=== PATIENT | female | born 1975 | race American Indian/Alaskan Native ===

== ENCOUNTER 2019-03-24 12:40 | Emergency (ER) | payer MEDICARE, OTHER ==
[2019-03-24] MEDS ORDERED: METOCLOPRAMIDE 10 MG/2 ML INJ IV PRN (13:30)
[2019-03-24] MEDS ORDERED: diphenhydrAMINE 50 MG/ML VIAL IV ONE (13:30)
[2019-03-24] MEDS ORDERED: FAMOTIDINE 20 MG/2 ML INJ IV ONE (14:14)
[2019-03-24] MEDS ORDERED: SODIUM CHLORIDE 0.9% 1000 ML 1,000 ML IV ONE ×2 (14:15→17:40)
[2019-03-24] MEDS ORDERED: ONDANSETRON 4 MG/2 ML INJ IV ONE ×2 (14:19→16:05)
--- NOTE | 2019-03-24 14:31 | Emergency Department Report ---
<SHILPA LEON - Last Filed: 03/24/19 17:39> ED N/V/D HPI - General Chief complaint: Nausea/Vomiting/Diarrhea Stated complaint: NAUSEA/VOMITING Time Seen by Provider: 03/24/19 13:23 Source: patient, EMS Mode of arrival: Stretcher Limitations: Physical Limitation - History of Present Illness Initial comments: 43-year-old -[place] female with a significant recent past medical history of toxic shock syndrome, SC, MARLYN, bilateral lower leg amputation, and finger necrosis laterally presents with complaints of nausea and vomiting with chills and sweats for the past 4 days and worsening pain in the right leg wound for the past 2 weeks. He is following with Dr. Jonas, wound clinic. Patient states that she is seen every Sunday and has a wound care nurse come to her house twice a weeklast seen on Sunday. Patient states her wound is worsening in pain and has a strong odor to itwith increased drainage. She states she is unable to keep any food down and vomits with or without eating. She denies any hematemesis, coffee-ground emesis, hematochezia/melena. She admits to epigastric pain that she rates as a 10/10 in severity. - Related Data Previous Rx's Medication Instructions Recorded Last Taken Type Ondansetron [Zofran Odt] 4 mg PO Q8HR PRN #10 tab.rapdis 03/24/19 Unknown Rx Allergies Allergy/AdvReac Type Severity Reaction Status Date / Time No Known Allergies Allergy Unverified 03/24/19 13:19 ED Review of Systems Constitutional: chills, fever, malaise Eyes: denies: vision change ENT: denies: throat pain Respiratory: denies: cough, shortness of breath Cardiovascular: denies: chest pain Gastrointestinal: abdominal pain, nausea, vomiting. denies: diarrhea, constipation, hematemesis, melena, hematochezia Genitourinary: denies: urgency, frequency Musculoskeletal: denies: back pain Skin: other (chronic wounds). denies: rash, change in color Neurological: denies: headache, paresthesias, confusion Psychiatric: denies: auditory hallucinations, visual hallucinations ED Past Medical Hx - Past Medical History Previous Medical History?: Yes Hx Hypertension: Yes Hx Heart Attack/AMI: Yes Additional medical history: sepsis - Surgical History Past Surgical History?: Yes Additional Surgical History: BLE amputation - Social History Smoking Status: Current Every Day Smoker Substance Use Type: None - Medications Home Medications: Home Medications Medication Instructions Recorded Confirmed Last Taken Type Ondansetron [Zofran Odt] 4 mg PO Q8HR PRN #10 tab.kentrelldis 03/24/19 Unknown Rx ED Physical Exam - General Limitations: Physical Limitation General appearance: alert, other (actively vomiting ) - Head Head exam: Present: atraumatic, normocephalic - Eye Eye exam: Present: normal appearance. Absent: scleral icterus - ENT ENT exam: Present: normal orophraynx - Neck Neck exam: Present: normal inspection. Absent: lymphadenopathy - Respiratory Respiratory exam: Present: normal lung sounds bilaterally. Absent: respiratory distress - Cardiovascular Cardiovascular Exam: Present: regular rate, normal rhythm - GI/Abdominal GI/Abdominal exam: Present: soft, tenderness (epigastric ). Absent: distended, guarding, rebound, rigid - Back Exam Back exam: Absent: CVA tenderness (L) - Neurological Exam Neurological exam: Present: alert, oriented X3 - Psychiatric Psychiatric exam: Present: normal affect, normal mood - Skin Skin exam: Present: warm, dry, normal color, other (chronic wound noted to the right lateral thigh with strong odor and significant tenderness to touch. No significant surrounding erythema or active drainage noted). Absent: rash ED Medical Decision Making - Lab Data Result diagrams: 03/24/19 16:34 03/24/19 14:01 Lab Results 03/24/19 03/24/19 03/24/19 Range/Units 14:01 14:01 14:37 WBC (4.5-11.0) K/mm3 RBC (3.65-5.03) M/mm3 Hgb (10.1-14.3) gm/dl Hct (30.3-42.9) % MCV (79-97) fl MCH (28-32) pg MCHC (30-34) % RDW (13.2-15.2) % Plt Count (140-440) K/mm3 Sodium 136 L (137-145) mmol/L Potassium 3.7 (3.6-5.0) mmol/L Chloride 96.9 L (98-107) mmol/L Carbon Dioxide 23 (22-30) mmol/L Anion Gap 20 mmol/L BUN 13 (7-17) mg/dL Creatinine 0.9 (0.7-1.2) mg/dL Estimated GFR > 60 ml/min BUN/Creatinine Ratio 14 % Glucose 106 H (65-100) mg/dL Lactic Acid 1.20 (0.7-2.0) mmol/L Calcium 9.8 (8.4-10.2) mg/dL Total Bilirubin 0.20 (0.1-1.2) mg/dL AST 10 (5-40) units/L ALT 5 L (7-56) units/L Alkaline Phosphatase 114 (35-129) units/L Troponin T < 0.010 (0.00-0.029) ng/mL Total Protein 8.3 H (6.3-8.2) g/dL Albumin 3.2 L (3.9-5) g/dL Albumin/Globulin Ratio 0.6 % Lipase (13-60) units/L 03/24/19 03/24/19 Range/Units 14:37 16:34 WBC 10.4 (4.5-11.0) K/mm3 RBC 3.24 L (3.65-5.03) M/mm3 Hgb 9.0 L (10.1-14.3) gm/dl Hct 27.4 L (30.3-42.9) % MCV 85 (79-97) fl MCH 28 (28-32) pg MCHC 33 (30-34) % RDW 16.4 H (13.2-15.2) % Plt Count 399 (140-440) K/mm3 Sodium (137-145) mmol/L Potassium (3.6-5.0) mmol/L Chloride (98-107) mmol/L Carbon Dioxide (22-30) mmol/L Anion Gap mmol/L BUN (7-17) mg/dL Creatinine (0.7-1.2) mg/dL Estimated GFR ml/min BUN/Creatinine Ratio % Glucose (65-100) mg/dL Lactic Acid (0.7-2.0) mmol/L Calcium (8.4-10.2) mg/dL Total Bilirubin (0.1-1.2) mg/dL AST (5-40) units/L ALT (7-56) units/L Alkaline Phosphatase (35-129) units/L Troponin T (0.00-0.029) ng/mL Total Protein (6.3-8.2) g/dL Albumin (3.9-5) g/dL Albumin/Globulin Ratio % Lipase 5 L (13-60) units/L - Medical Decision Making 43-year-old -[place] female with a significant recent past medical history of toxic shock syndrome, SC, MARLYN, bilateral lower leg amputation, and finger necrosis laterally presents with complaints of nausea and vomiting with chills and sweats for the past 4 days and worsening pain in the right leg wound for the past 2 weeks. He is following with Dr. Jonas, wound clinic. Patient states that she is seen every Sunday and has a wound care nurse come to her house twice a weeklast seen on Sunday. Wbc's are normal. Lactic acid is negative. Patient afebrile. No erythema or drainage noted of the wound. Patient seen here 03/09/2019 for similar symptoms. Patient's father states he believes patient has smoked marijuana recently although patient denies this. Urine drug screen pending. Pain and vomiting currently controlled after morphine and second dose of Zofran. Suspect possible cannabinoid hyperemesis and dry given all labs are WNL. Patient remains mildly tachycardic after 1 L bolus-most recent heart rate measured at 118. Second liter bolus ordered. Patient to DC home is heart rate normalizes with follow-up with gastroenterology. Patient handed off to Isaiah Metcalf PA-C pending HR recheck and PO challenge. ED Disposition Clinical Impression: Cannabinoid hyperemesis syndrome Nausea & vomiting Qualifiers: Vomiting type: unspecified Vomiting Intractability: non-intractable Qualified Code(s): R11.2 - Nausea with vomiting, unspecified Disposition: DC- TO HOME OR SELFCARE Is pt being admited?: No Condition: Stable Instructions: Acute Nausea and Vomiting (ED) Additional Instructions: Follow-up with a primary care and quality control operator doctor in 3-5 days or if symptoms worsen and continue return to emergency room as soon as possible. Prescriptions: Ondansetron [Zofran Odt] 4 mg PO Q8HR PRN #10 tab.rapdis PRN Reason: Nausea Referrals: [facility] [Provider Group] - 2-3 Days PRIMARY CARE, [Primary Care Provider] - 3-5 Days NICOLA RODRIGUEZ MD [Staff Physician] - 3-5 Days [facility] [Outside] - 3-5 Days [facility] [Outside] - 3-5 Days <ISAIAH METCALF - Last Filed: 03/24/19 22:21> ED Review of Systems ROS: Stated complaint: NAUSEA/VOMITING Other details as noted in HPI ED Course Vital Signs 03/24/19 03/24/19 03/24/19 13:08 13:15 13:16 Temperature 98.2 F Pulse Rate 66 67 Respiratory 22 24 13 Rate Blood Pressure 190/96 190/96 O2 Sat by Pulse 100 100 Oximetry 03/24/19 03/24/19 03/24/19 13:30 13:46 14:00 Temperature Pulse Rate 72 66 71 Respiratory 12 23 22 Rate Blood Pressure 190/96 132/111 194/102 O2 Sat by Pulse 100 100 100 Oximetry 03/24/19 03/24/19 03/24/19 14:16 14:30 14:46 Temperature Pulse Rate 69 73 75 Respiratory 28 H 24 30 H Rate Blood Pressure 132/111 193/99 193/99 O2 Sat by Pulse 100 100 99 Oximetry 03/24/19 03/24/19 03/24/19 14:59 15:00 15:30 Temperature Pulse Rate 74 88 93 H Respiratory 23 27 H Rate Blood Pressure 193/99 193/104 193/104 O2 Sat by Pulse 99 100 Oximetry 03/24/19 03/24/19 03/24/19 16:00 16:30 16:55 Temperature Pulse Rate 80 87 Respiratory 10 L 12 18 Rate Blood Pressure 176/91 147/96 O2 Sat by Pulse 100 100 Oximetry 03/24/19 03/24/19 03/24/19 17:00 17:30 18:00 Temperature Pulse Rate 108 H 106 H Respiratory 14 17 13 Rate Blood Pressure 170/87 168/94 173/97 O2 Sat by Pulse 100 99 99 Oximetry 03/24/19 03/24/19 03/24/19 18:30 18:46 19:00 Temperature Pulse Rate 115 H 136 H 123 H Respiratory 17 19 20 Rate Blood Pressure 133/82 119/89 119/89 O2 Sat by Pulse 98 98 90 Oximetry 03/24/19 03/24/19 03/24/19 19:16 19:30 20:18 Temperature Pulse Rate 100 H 116 H 111 H Respiratory 15 29 H 10 L Rate Blood Pressure 133/87 133/87 130/76 O2 Sat by Pulse 100 98 100 Oximetry 03/24/19 03/24/19 20:30 20:49 Temperature 98.7 F Pulse Rate 108 H Respiratory 16 Rate Blood Pressure 130/76 O2 Sat by Pulse 100 Oximetry - Reevaluation(s) Reevaluation #1: 03/24/19 20:46 Patient is resting comfortably with no signs of distress. Patient tolerated by mouth with no nausea vomiting. Patient is currently stable. ED Medical Decision Making - Lab Data Result diagrams: 03/24/19 16:34 03/24/19 14:01 - Medical Decision Making Patient was originally seen by claribel Stokes and was signed out to me for a by mouth challenge and repeat heart rate. Patient does and has been doing marijuana daily. Heart rate has safely decreased prior to discharge. Patient has tolerated by mouth. X-ray obtained and dictated by radiologist of the abdomen/chest within normal limits. Labs are unremarkable. Vitals signs stable. Patient will be discharged with [facility] and patient was instructed to Follow-up with a primary care and quality control operator doctor in 3-5 days or if symptoms worsen and continue return to emergency room as soon as possible. At time of discharge, the patient does not seem toxic or ill in appearance. No acute signs of distress noted. Patient agrees to discharge treatment plan of care. No further questions noted by the patient. Critical care attestation.: If time is entered above; I have spent that time in minutes in the direct care of this critically ill patient, excluding procedure time. ED Disposition Is pt being admited?: No Does the pt Need Aspirin: No
[2019-03-24 14:35] LABS: Alanine Aminotransferase 5 units/L (7-56); Albumin 3.2 g/dL (3.9-5); BUN/Creatinine Ratio 14; Blood Urea Nitrogen 13 mg/dL (7-17); Calcium 9.8 mg/dL (8.4-10.2); Hemolysis Index 13
[2019-03-24] MEDS ORDERED: hydrALAZINE 20 MG/1 ML INJ IV ONE (14:55)
[2019-03-24] MEDS ORDERED: MORPHINE 4 MG/1 ML INJ IV ONE ×2 (16:05→20:20)
[2019-03-24 17:26] LABS: Hematocrit 27.4 % (30.3-42.9); Mean Corpuscular HGB Conc 33 % (30-34); Mean Corpuscular Volume 85 fl (79-97); Platelet Count 399 K/mm3 (140-440); Red Blood Count 3.24 M/mm3 (3.65-5.03); Red Cell Distribution Width 16.4 % (13.2-15.2)
[2019-03-24] MEDS ORDERED: MORPHINE 2 MG/1 ML INJ ONE (20:21)
--- NOTE | 2019-03-24 20:25 | XRay Report ---
ACUTE ABDOMEN SERIES INDICATION / CLINICAL INFORMATION: MAIN: n/v Pt presents with c/o N/V x 4 days and malodorous wound to thigh. . COMPARISON: None available. FINDINGS: Bowel gas pattern is nonspecific, not indicative of obstruction. Upright images show no free air. Lumbar scoliosis with extensive postop change in the lower lumbar spine. Signer Name: Wan Colon MD Signed: 03/24/2019 8:20 PM Workstation Name: [id number]
[2019-03-24 20:40] VITALS: BP 130/76
[2019-03-24 21:08] LABS: Bilirubin,Urine NEG (Negative); Blood,Urine NEG (Negative); Color,Urine Yellow (Yellow); Urobilinogen,Urine < 2.0 mg/dL (<2.0)
[2019-03-24 21:10] LABS: Amphetamine Screen,Urine PRESUMPTIVE NEGATIVE; Cocaine Screen,Urine PRESUMPTIVE NEGATIVE; Methadone Screen,Urine PRESUMPTIVE NEGATIVE; Opiate Screen,Urine PRESUMPTIVE NEGATIVE
[2019-03-24 21:30] LABS: Benzodiazepines Screen,Urine PRESUMPTIVE POSITIVE; Cannabinoid Screen,Urine PRESUMPTIVE POSITIVE
== END 2019-03-24 21:54 | disposition home or self-care (01) ==
LOC: ED 12:40
DX: F12.288 Cannabis dependence with other cannabis-induced disorder (principal); R11.2 Nausea with vomiting, unspecified; I25.2 Old myocardial infarction; N17.9 Acute kidney failure, unspecified; F17.200 Nicotine dependence, unspecified, uncomplicated; Z89.612 Acquired absence of left leg above knee; Z89.611 Acquired absence of right leg above knee; Z79.899 Other long term (current) drug therapy
CPT/HCPCS: 36415; 74022; 80053; 80307; 81001; 82140; 83690; 84484; 85027; 87116; 93005; 93010; 96361; 96374; 96375; 96376; 99284; J0360; J1200; J2270; J2405; J2765; J7030; 87076; 87186

== ENCOUNTER 2019-04-25 13:14 | Emergency (ER) | payer MEDICARE, OTHER ==
[2019-04-25] MEDS ORDERED: MORPHINE 4 MG/1 ML INJ ONE (14:44)
[2019-04-25] MEDS ORDERED: MORPHINE 4 MG/1 ML INJ IV ONE ×2 (14:48→15:41)
[2019-04-25] MEDS ORDERED: ONDANSETRON 4 MG/2 ML INJ IV ONE (15:41)
[2019-04-25] MEDS ORDERED: SODIUM CHLORIDE 0.9% 1000 ML IV SOLN IV ONE (15:43)
--- NOTE | 2019-04-25 15:43 | Emergency Department Report ---
ED General Adult HPI - General Chief complaint: Wound/Laceration Stated complaint: R LEG PAIN Time Seen by Provider: 04/25/19 14:38 Source: patient, EMS Mode of arrival: Stretcher Limitations: No Limitations - History of Present Illness Initial comments: Patient presents to the emergency department with a chief complaint of bilateral leg pain. Patient status post bilateral [id number] application secondary to septicemia. Patient states she's scheduled to see a pain management doctor at the first week of May. Patient was scheduled to have ischemic fingers amputated this past Sunday but she was diagnosed with flu and it was rescheduled. She also complains of a chronic wound to her right lateral aspect of her thigh that she seeing wound care for. -: unknown Location: lower extremity Severity scale (0 -10): 10 Quality: sharp Consistency: constant Improves with: none Worsens with: none Associated Symptoms: denies other symptoms Treatments Prior to Arrival: none - Related Data Previous Rx's Medication Instructions Recorded Last Taken Type Ondansetron [Zofran Odt] 4 mg PO Q8HR PRN #10 tab.rapdis 03/24/19 Unknown Rx HYDROcodone/APAP 7.5-325 [Bertram 1 each PO Q6HR PRN #15 tablet 04/25/19 Unknown Rx 7.5/325] Sulfamethoxazole/Trimethoprim 2 each PO BID #28 tablet 04/25/19 Unknown Rx [Bactrim DS TAB] Allergies Allergy/AdvReac Type Severity Reaction Status Date / Time No Known Allergies Allergy Unverified 03/24/19 13:19 ED Review of Systems ROS: Stated complaint: R LEG PAIN Other details as noted in HPI Comment: All other systems reviewed and negative Constitutional: denies: chills, fever Eyes: denies: eye pain, eye discharge, vision change ENT: denies: ear pain, throat pain Respiratory: denies: cough, shortness of breath, wheezing Cardiovascular: denies: chest pain, palpitations Endocrine: no symptoms reported Gastrointestinal: denies: abdominal pain, nausea, diarrhea Genitourinary: denies: urgency, dysuria, discharge Musculoskeletal: denies: back pain, joint swelling, arthralgia Skin: denies: rash, lesions Neurological: denies: headache, weakness, paresthesias Psychiatric: denies: anxiety, depression Hematological/Lymphatic: denies: easy bleeding, easy bruising ED Past Medical Hx - Past Medical History Hx Hypertension: Yes Hx Heart Attack/AMI: Yes Additional medical history: sepsis - Surgical History Additional Surgical History: BLE amputation - Social History Smoking Status: Current Every Day Smoker - Medications Home Medications: Home Medications Medication Instructions Recorded Confirmed Last Taken Type Ondansetron [Zofran Odt] 4 mg PO Q8HR PRN #10 tab.rapdis 03/24/19 Unknown Rx HYDROcodone/APAP 7.5-325 [Bertram 1 each PO Q6HR PRN #15 tablet 04/25/19 Unknown Rx 7.5/325] Sulfamethoxazole/Trimethoprim 2 each PO BID #28 tablet 04/25/19 Unknown Rx [Bactrim DS TAB] ED Physical Exam - General Limitations: No Limitations General appearance: alert, in no apparent distress - Head Head exam: Present: atraumatic, normocephalic - Eye Eye exam: Present: normal appearance - ENT ENT exam: Present: mucous membranes moist - Neck Neck exam: Present: normal inspection - Respiratory Respiratory exam: Present: normal lung sounds bilaterally. Absent: respiratory distress - Cardiovascular Cardiovascular Exam: Present: normal rhythm, tachycardia. Absent: systolic murmur, diastolic murmur, rubs, gallop - GI/Abdominal GI/Abdominal exam: Present: soft, normal bowel sounds - Extremities Exam Extremities exam: Present: other (patient has ischemic digits of the left hand as well as ischemic digits of the right hand. There is a chronic wound to the right lateral aspect of the leg with mild surrounding erythema) - Back Exam Back exam: Present: normal inspection - Neurological Exam Neurological exam: Present: alert, oriented X3, CN II-XII intact. Absent: motor sensory deficit - Psychiatric Psychiatric exam: Present: normal affect, normal mood - Skin Skin exam: Present: warm, dry, intact, normal color. Absent: rash ED Course Vital Signs 04/25/19 14:23 Temperature 97.9 F Pulse Rate 130 H Respiratory 20 Rate Blood Pressure 143/120 Blood Pressure 143/120 [Left] O2 Sat by Pulse 100 Oximetry ED Medical Decision Making - Lab Data Result diagrams: 04/25/19 16:00 04/25/19 16:00 Lab Results 04/25/19 04/25/19 04/25/19 Range/Units 16:00 16:00 16:00 WBC 12.3 H (4.5-11.0) K/mm3 RBC 4.05 (3.65-5.03) M/mm3 Hgb 10.9 (10.1-14.3) gm/dl Hct 34.7 (30.3-42.9) % MCV 86 (79-97) fl MCH 27 L (28-32) pg MCHC 32 (30-34) % RDW 18.8 H (13.2-15.2) % Plt Count 440 (140-440) K/mm3 Lymph % (Auto) 27.8 (13.4-35.0) % Valencia % (Auto) 6.2 (0.0-7.3) % Eos % (Auto) 0.5 (0.0-4.3) % Baso % (Auto) 0.5 (0.0-1.8) % Lymph # 3.4 (1.2-5.4) K/mm3 Valencia # 0.8 (0.0-0.8) K/mm3 Eos # 0.1 (0.0-0.4) K/mm3 Baso # 0.1 (0.0-0.1) K/mm3 Seg Neutrophils % 65.0 (40.0-70.0) % Seg Neutrophils # 8.0 H (1.8-7.7) K/mm3 APTT 32.4 (24.2-36.6) Sec. Sodium 133 L (137-145) mmol/L Potassium 3.9 (3.6-5.0) mmol/L Chloride 101.8 (98-107) mmol/L Carbon Dioxide 15 L (22-30) mmol/L Anion Gap 20 mmol/L BUN 27 H (7-17) mg/dL Creatinine 0.9 (0.7-1.2) mg/dL Estimated GFR > 60 ml/min BUN/Creatinine Ratio 30 % Glucose 94 (65-100) mg/dL Lactic Acid (0.7-2.0) mmol/L Calcium 10.2 (8.4-10.2) mg/dL Total Bilirubin < 0.20 (0.1-1.2) mg/dL AST 10 (5-40) units/L ALT 9 (7-56) units/L Alkaline Phosphatase 105 (35-129) units/L Total Protein 8.9 H (6.3-8.2) g/dL Albumin 3.8 L (3.9-5) g/dL Albumin/Globulin Ratio 0.7 % 04/25/19 Range/Units 16:00 WBC (4.5-11.0) K/mm3 RBC (3.65-5.03) M/mm3 Hgb (10.1-14.3) gm/dl Hct (30.3-42.9) % MCV (79-97) fl MCH (28-32) pg MCHC (30-34) % RDW (13.2-15.2) % Plt Count (140-440) K/mm3 Lymph % (Auto) (13.4-35.0) % Valencia % (Auto) (0.0-7.3) % Eos % (Auto) (0.0-4.3) % Baso % (Auto) (0.0-1.8) % Lymph # (1.2-5.4) K/mm3 Valencia # (0.0-0.8) K/mm3 Eos # (0.0-0.4) K/mm3 Baso # (0.0-0.1) K/mm3 Seg Neutrophils % (40.0-70.0) % Seg Neutrophils # (1.8-7.7) K/mm3 APTT (24.2-36.6) Sec. Sodium (137-145) mmol/L Potassium (3.6-5.0) mmol/L Chloride (98-107) mmol/L Carbon Dioxide (22-30) mmol/L Anion Gap mmol/L BUN (7-17) mg/dL Creatinine (0.7-1.2) mg/dL Estimated GFR ml/min BUN/Creatinine Ratio % Glucose (65-100) mg/dL Lactic Acid 0.70 (0.7-2.0) mmol/L Calcium (8.4-10.2) mg/dL Total Bilirubin (0.1-1.2) mg/dL AST (5-40) units/L ALT (7-56) units/L Alkaline Phosphatase (35-129) units/L Total Protein (6.3-8.2) g/dL Albumin (3.9-5) g/dL Albumin/Globulin Ratio % - Medical Decision Making Patient improved after pain medications Critical care attestation.: If time is entered above; I have spent that time in minutes in the direct care of this critically ill patient, excluding procedure time. ED Disposition Clinical Impression: Leukocytosis, Leg pain, Chronic wound of extremity Disposition: - TO HOME OR SELFCARE Is pt being admited?: No Does the pt Need Aspirin: No Condition: Stable Instructions: Leukocytosis (ED), Chronic Wound Care (ED) Additional Instructions: return if worse Referrals: PRIMARY CARE,MD [Primary Care Provider] - 3-5 Days SHAKIRA MAYS DO [Staff Physician] - 3-5 Days Time of Disposition: 17:58
[2019-04-25] MEDS ORDERED: CEFEPIME/NS 1 GM/100 ML 1 GM/100 ML BAG IV ONE (15:46)
[2019-04-25 16:14] LABS: Basophils # (Auto) 0.1 K/mm3 (0.0-0.1); Basophils % (Auto) 0.5 % (0.0-1.8); Eosinophils # (Auto) 0.1 K/mm3 (0.0-0.4); Eosinophils % (Auto) 0.5 % (0.0-4.3); Hematocrit 34.7 % (30.3-42.9); Hemoglobin 10.9 gm/dl (10.1-14.3); Lymphocytes # (Auto) 3.4 K/mm3 (1.2-5.4); Lymphocytes % (Auto) 27.8 % (13.4-35.0); Mean Corpuscular HGB Conc 32 % (30-34); Mean Corpuscular Volume 86 fl (79-97); Monocytes # (Auto) 0.8 K/mm3 (0.0-0.8); Monocytes % (Auto) 6.2 % (0.0-7.3); Platelet Count 440 K/mm3 (140-440); Red Blood Count 4.05 M/mm3 (3.65-5.03); Red Cell Distribution Width 18.8 % (13.2-15.2)
[2019-04-25 16:39] LABS: Alanine Aminotransferase 9 units/L (7-56); Albumin 3.8 g/dL (3.9-5); BUN/Creatinine Ratio 30; Blood Urea Nitrogen 27 mg/dL (7-17); Calcium 10.2 mg/dL (8.4-10.2); Hemolysis Index 4
[2019-04-25] MEDS ORDERED: HYDROcodone/ACETAMINOPHEN 10-325MG TAB ONE (18:15)
[2019-04-25 18:54] VITALS: BP 163/113
[2019-04-25] MEDS ORDERED: HYDROcodone/ACETAMINOPHEN 10-325MG TAB PO ONE (18:54)
== END 2019-04-25 18:56 | disposition home or self-care (01) ==
LOC: ED 13:14
DX: S81.801A Unspecified open wound, right lower leg, initial encounter (principal); D72.829 Elevated white blood cell count, unspecified; I10 Essential (primary) hypertension; I25.2 Old myocardial infarction; F17.200 Nicotine dependence, unspecified, uncomplicated; X58.XXXA Exposure to other specified factors, initial encounter; Y93.89 Activity, other specified; Y92.89 Other specified places as the place of occurrence of the external cause; Y99.8 Other external cause status
CPT/HCPCS: 36415; 80053; 82140; 85025; 85730; 87040; 93005; 93010; 96365; 96375; 96376; 99284; J0692; J2270; J2405; J7030

== ENCOUNTER 2019-04-29 19:57 | Emergency (ER) | payer MEDICARE, OTHER | END 2019-04-29 23:01 | disposition home or self-care (01) | LOC: ED 19:57 | CPT/HCPCS: 96372; 99283; J1170 ==

== ENCOUNTER 2019-06-11 15:12 | Emergency (ER) | payer MEDICARE, OTHER ==
[2019-06-11] MEDS ORDERED: oxyCODONE /ACETAMINOPHEN 5-325MG TAB PO ONE (15:41)
[2019-06-11 15:42] VITALS: BP 170/94
--- NOTE | 2019-06-11 15:43 | Emergency Department Report ---
Chief Complaint: Extremity Problem,Nontraumatic Stated Complaint: BILATERAL LEG PAIN Time Seen by Provider: 06/11/19 15:41 - HPI History of Present Illness: wound care: Dr Dianne Browning pain dr: Dr Rosales 43 y/o fem p/w b/l l stump pain and pain over right sided wound to minor care for detailed abd and extremity exam ok for minor care patients requesting psych eval for hypomania [place] [id number] candidate at this time Vital Signs 06/11/19 15:40 Temperature 98 F Pulse Rate 99 H Respiratory 18 Rate Blood Pressure 170/94 O2 Sat by Pulse 100 Oximetry MSE screening note: Focused history and physical exam performed. Due to findings the following was ordered: ED Disposition for MSE Condition: Stable
[2019-06-11 16:17] LABS: Hematocrit 31.8 % (30.3-42.9); Hemoglobin 10.3 gm/dl (10.1-14.3)
[2019-06-11 16:30] LABS: BUN/Creatinine Ratio 20; Blood Urea Nitrogen 16 mg/dL (7-17); Calcium 9.6 mg/dL (8.4-10.2); Hemolysis Index 0
== END 2019-06-11 19:45 | disposition left against medical advice (07) ==
LOC: ED 15:12
DX: M79.604 Pain in right leg (principal); Z53.21 Procedure and treatment not carried out due to patient leaving prior to being seen by health care provider
CPT/HCPCS: 36415; 80048; 80320; 82550; 84443; 84702; 85014; 85018; 85049; G0480

== ENCOUNTER 2020-03-31 07:05 | Emergency (ER) | payer MEDICARE, OTHER ==
[2020-03-31] MEDS ORDERED: ONDANSETRON 4 MG/2 ML INJ IV ONE (07:53)
[2020-03-31] MEDS ORDERED: SODIUM CHLORIDE 0.9% 1000 ML 1,000 ML IV ONE (07:53)
[2020-03-31] MEDS ORDERED: LORazepam 2 MG/ML VIAL ONE (08:05)
[2020-03-31] MEDS ORDERED: LORazepam 2 MG/ML VIAL IV ONE (08:25)
[2020-03-31 08:26] LABS: Basophils # (Auto) 0.1 K/mm3 (0.0-0.1); Basophils % (Auto) 0.5 % (0.0-1.8); Eosinophils % (Auto) 0.2 % (0.0-4.3); Hemoglobin 13.8 gm/dl (10.1-14.3); Lymphocytes # (Auto) 2.7 K/mm3 (1.2-5.4); Lymphocytes % (Auto) 22.7 % (13.4-35.0); Mean Corpuscular HGB Conc 34 % (30-34); Mean Corpuscular Volume 92 fl (79-97); Monocytes # (Auto) 0.6 K/mm3 (0.0-0.8); Monocytes % (Auto) 4.8 % (0.0-7.3); Platelet Count 253 K/mm3 (140-440); Red Blood Count 4.37 M/mm3 (3.65-5.03); Red Cell Distribution Width 15.5 % (13.2-15.2)
[2020-03-31 08:41] LABS: Alanine Aminotransferase 13 units/L (7-56); Albumin 3.8 g/dL (3.9-5); Blood Urea Nitrogen 10 mg/dL (7-17); Calcium 9.6 mg/dL (8.4-10.2); Hemolysis Index 4
[2020-03-31 08:53] LABS: BUN/Creatinine Ratio 14; Bilirubin,Direct < 0.2 mg/dL (0-0.2)
[2020-03-31] MEDS ORDERED: POTASSIUM CHLORIDE ER 20 MEQ TAB PO ONE (09:04)
[2020-03-31 10:16] LABS: Bilirubin,Urine NEG (Negative); Blood,Urine NEG (Negative); Color,Urine Yellow (Yellow); Mucus,Urine 1+ /HPF; Urobilinogen,Urine < 2.0 mg/dL (<2.0)
[2020-03-31 10:24] LABS: Benzodiazepines Screen,Urine Negative; Cannabinoid Screen,Urine Negative; Cocaine Screen,Urine Negative; HCG Qualitative,Urine Negative (Negative); Methadone Screen,Urine Negative; Opiate Screen,Urine Negative
[2020-03-31 10:38] LABS: Amphetamine Screen,Urine PRESUMPTIVE POSITIVE
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
[2020-03-31] MEDS ORDERED: METOCLOPRAMIDE 10 MG/2 ML INJ IV ONE (11:07)
[2020-03-31] MEDS ORDERED: METOCLOPRAMIDE 10 MG/2 ML INJ ONE (14:05)
[2020-03-31 17:02] VITALS: BP 150/90
== END 2020-03-31 15:00 | disposition home or self-care (01) ==
LOC: ED 07:05
DX: F15.20 Other stimulant dependence, uncomplicated (principal); R11.2 Nausea with vomiting, unspecified; R19.7 Diarrhea, unspecified; I10 Essential (primary) hypertension; I25.2 Old myocardial infarction
CPT/HCPCS: 36415; 80048; 80076; 80307; 81001; 81025; 83690; 85025; 96361; 96374; 96375; 99284; J2060; J2405; J2765; J7030; 80320; G0480

== ENCOUNTER 2020-04-25 01:59 | Emergency (ER) | payer MEDICARE, OTHER ==
[2020-04-25 02:53] VITALS: BP 110/54
[2020-04-25 03:49] LABS: Mean Corpuscular HGB Conc 34 % (30-34); Mean Corpuscular Volume 94 fl (79-97); Red Blood Count 3.51 M/mm3 (3.65-5.03); Red Cell Distribution Width 15.5 % (13.2-15.2)
[2020-04-25 04:15] LABS: Alanine Aminotransferase 10 units/L (7-56); BUN/Creatinine Ratio 18; Blood Urea Nitrogen 16 mg/dL (7-17); Calcium 8.2 mg/dL (8.4-10.2); Hemolysis Index 5
[2020-04-25 04:25] LABS: Platelet Count 94 K/mm3 (140-440)
[2020-04-25 07:02] LABS: Anisocytosis 1+; Band Neutrophils # (Manual) 0.1 K/mm3; Total Cells Counted 100
[2020-04-25 07:03] LABS: Platelet Estimate Consistent w Auto
== END 2020-04-25 07:00 ==
LOC: ED 01:59
DX: R30.9 Painful micturition, unspecified (principal); Z53.21 Procedure and treatment not carried out due to patient leaving prior to being seen by health care provider
CPT/HCPCS: 36415; 80053; 84703; 85007; 85025

== ENCOUNTER 2021-02-28 18:02 | Emergency (ER) | payer MEDICARE, OTHER ==
[2021-02-28 18:26] VITALS: BP 133/75
[2021-02-28] MEDS ORDERED: dexAMETHasone 20 MG/5 ML VIAL IM ONE (19:27)
[2021-02-28] MEDS ORDERED: KETOROLAC 60 MG/2 ML INJ IM ONE (19:27)
--- NOTE | 2021-02-28 20:13 | XRay Report ---
XR femur BILAT 2+V INDICATION / CLINICAL INFORMATION: Pain - stump COMPARISON: 02/20/2019 and 07/21/2019. FINDINGS: Right femoral hardware transfixing ununited right proximal femur fracture, unchanged in appearance fr om prior exam in 2019. Postoperative changes of bilateral [id number]-[id number] amputation. The cortical mar gins are sharp. No aggressive cortical destructive changes to suggest osteomyelitis. There is no acut e fracture or malalignment. Lumbosacral postoperative changes are partially imaged, grossly intact. N o focal soft tissue abnormality. IMPRESSION: No acute abnormality. Stable chronic, postoperative findings, as above. Signer Name: Modesto Hein MD Signed: 02/28/2021 8:09 PM Workstation Name: [id number]
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
== END 2021-02-28 21:07 | disposition home or self-care (01) ==
LOC: ED 18:02
DX: G89.29 Other chronic pain (principal); M25.511 Pain in right shoulder; M19.90 Unspecified osteoarthritis, unspecified site; M62.838 Other muscle spasm; M79.661 Pain in right lower leg; M79.662 Pain in left lower leg; I10 Essential (primary) hypertension; F17.200 Nicotine dependence, unspecified, uncomplicated; Z79.899 Other long term (current) drug therapy
CPT/HCPCS: 73552; 96372; 99283; J1100; J1885